=== PATIENT | male | born 1975 | race Caucasian/White ===

== ENCOUNTER → 2022-01-11 | Outpatient (CLI) | payer OTHER ==
--- NOTE | 2022-01-11 15:57 | KCIC ---
EXAM: MRI LEFT ANKLE/HINDFOOT DATE: 01/11/2022 3:00 PM CLINICAL INDICATION: Reason: LEFT ACHILLES INJURY/PAIN / Spl. Instructions: / History: Step wrong in jurying left achilles 6 days ago. COMPARISON: None. TECHNIQUE: Multiplanar, multisequence MR imaging of the left ankle was performed without IV contrast. FINDINGS: No ankle or subtalar joint effusion. Tendons: Posterior tibialis, flexor digitorum longus and flexor hallucis longus tendons are intact. Mild increased signal and thickening of the peroneus longus and brevis tendon posterior to the latera l malleolus, tendinosis. The peroneal tendons are anatomically positioned behind the lateral malleolu s. Anterior tibialis, extensor digitorum longus and extensor hallucis longus tendons are intact. There is a full-thickness tear of the Achilles tendon approximately 5 cm from the calcaneal attachmen t. In the principal components of the Achilles tendon measures 3 cm with associated fluid cleft and f at herniating between the segments of the Achilles tendon. Plantar fascia intact without marginal osteitis or soft tissue swelling. Physiologic fluid at the ret rocalcaneal bursa. Ligaments: Medial deltoid stabilizers are intact. Lateral collateral stabilizing ligaments including the anterior talofibular ligament are intact. Anterior and posterior tibiofibular ligaments are intact. Ligaments of the Sinus Tarsi are intact. Spaces/Places: Sinus Tarsi within normal limits, without mass lesion or edema pattern. Tarsal tunnel within normal limits, without mass lesion. Articular Cartilage/joint line: Articular cartilage at the tibiotalar joint preserved. Negative osteochondral lesion of the talar dom e. Posterior and middle subtalar joint spaces are preserved. Marginal joint spaces appear preserved including calcaneocuboid joint. Bone/Bone Marrow: No acute fracture or osteonecrosis. Soft tissue edema overlying the medial malleolus and dorsal aspect of the midfoot and hindfoot. IMPRESSION: 1. Full-thickness tear of the Achilles tendon approximately 5 cm the calcaneal attachment with 3 cm gap. Associated fluid cleft and Kagers fat is seen. 2. Mild peroneus longus and brevis tendinosis. Electronically signed by: Michele Juan MD (01/11/2022 3:54 PM) [id number]
== END ==
LOC: KCIC MRI 14:27
PROVIDERS: ATTEND Physician Assistant
DX: S86.012A Strain of left Achilles tendon, initial encounter (principal); X58.XXXA Exposure to other specified factors, initial encounter; Y93.89 Activity, other specified; Y92.89 Other specified places as the place of occurrence of the external cause; Y99.8 Other external cause status
CPT/HCPCS: 73721

== ENCOUNTER 2022-01-20 09:05 | Day surgery (SDC) | payer OTHER ==
[~2022-01-20] VITALS: Ht 182.9 cm; Wt 95.0 kg
[~2022-01-20 09:05] MED LIST: BUPIVACAINE MPF 0.25% 30 ML VIAL. ONE; BUPR100T16 PO; CELE200C PO; HYDROmorphone 2 MG/ML INJ. IVP PRN; IV RINGERS,LACTATED 1000ML 1,000 ML IV SCH; MORPHINE SULFATE 2 MG/ML INJ. IVP PRN; PROCHLORPERAZINE 10 MG/2 ML VIAL. IVP PRN; SERT100T PO; TRAZ-123 PO; fentaNYL PF VIAL 100 MCG/2 ML VIAL IVP PRN
[2022-01-20] MEDS ORDERED: LIDOCAINE 1% PF 2 ML VIAL. ONE (09:10)
[2022-01-20] MEDS ORDERED: ROPIVacaine 0.5% PF 20 ML VIAL. ONE (09:10)
[2022-01-20] MEDS ORDERED: MIDAZOLAM HCL/PF 2 MG/2 ML VIAL. ONE (09:10)
[2022-01-20] MEDS ORDERED: DEXAMETHASONE SOD PHOS 4 MG/ML VIAL ONE ×2 (09:10→09:47)
[2022-01-20 09:34] VITALS: BP 141/88
[2022-01-20] MEDS ORDERED: ONDANSETRON PF 4 MG/2 ML VIAL. ONE (09:47)
[2022-01-20] MEDS ORDERED: SUCCINYLCHOLINE 200 MG/10 ML VIAL. ONE (09:47)
[2022-01-20] MEDS ORDERED: LIDOCAINE 2% PF 5 ML VIAL. ONE (09:47)
[2022-01-20] MEDS ORDERED: PROPOFOL 10 MG/ML (20ML) VIAL. IV ONE (09:47)
[2022-01-20] MEDS ORDERED: ROCURONIUM 50 MG/5 ML VIAL. ONE ×2 (09:47→11:12)
[2022-01-20] MEDS ORDERED: NEOSTIGMINE METHYLSULFATE 5 MG/5 ML SYRINGE. ONE (09:47)
[2022-01-20] MEDS ORDERED: fentaNYL PF VIAL 100 MCG/2 ML VIAL ONE ×2 (09:48→12:32)
[2022-01-20] MEDS ORDERED: GLYCOPYRROLATE 1 MG/5 ML VIAL. ONE (09:48)
--- NOTE | 2022-01-20 10:03 | PDOC1 ---
History and Physical Date of Admission Date of Admission DATE: 01/20/22 TIME: 10:03 Identification/Chief Complaint Chief Complaint Left ankle pain, achilles rupture Source Source: Chart review, Patient History of Present Illness History of Present Illness Mr Garvin is a 46 yo male [employer] with PMHx PTSD seen in the preoperative care for assessment prior to left Achilles repair. On 01/05/2022 injured his left ankle and foot after stepping off a curb and into a pothole. He was initially seen in the ED and was noted with Achilles complete tear on MRI 01/11/2022 and was placed to the E boot. He has had tenderness of weight bearing. Is able to flex and dorsiflex foot. Distal neurovascular and capillary refill is equal to right foot. No recent travel. No specific ill contacts. No prior problems with anesthesia or blood clots. He has been compliant with his immobilizer boot and has been using a knee scooter to ambulate. 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 He is a 27-year retired of the [employer]. Past Medical History Psych: Other (PTSD) Past Surgical History Past Surgical History: Appendectomy, Other (Left femur fracture at age 8. Left shoulder labrum and biceps tear repair) Family History Family History Reviewed Family History: No Significant Social History Smoke: Quit (Smokeless tobacco chews.) ALCOHOL: rare (1-2 drinks per month) Drugs: None Current Medications Current Medications Current Medications Cefazolin Sodium/ Dextrose 50 ml @ 100 mls/hr 1X PREOP PRN IV PRIOR TO PROCEDURE; Start 01/20/22 at 06:00; Stop 01/20/22 at 18:00 Fentanyl Citrate (Fentanyl 2ml Vial) 25 mcg PRN Q5MIN PRN IVP MILD PAIN 1-3; Start 01/20/22 at 06:00; Stop 01/21/22 at 05:59 Fentanyl Citrate (Fentanyl 2ml Vial) 50 mcg PRN Q5MIN PRN IVP MODERATE PAIN 4- 6; Start 01/20/22 at 06:00; Stop 01/21/22 at 05:59 Morphine Sulfate (Morphine Sulfate) 1 mg PRN Q10MIN PRN IVP SEVERE PAIN 7-10; Start 01/20/22 at 06:00; Stop 01/21/22 at 05:59 Ringer's Solution 1,000 ml @ 30 mls/hr Q24H IV Last administered on 01/20/22at 09:43; Start 01/20/22 at 06:00; Stop 01/20/22 at 17:59 Hydromorphone HCl (Dilaudid) 0.5 mg PRN Q10MIN PRN IVP SEVERE PAIN 7-10, 2nd CHOICE; Start 01/20/22 at 06:00; Stop 01/21/22 at 05:59 Prochlorperazine Edisylate (Compazine) 5 mg PACU PRN PRN IVP NAUSEA, MRX1; Start 01/20/22 at 06:00; Stop 01/21/22 at 05:59 Bupivacaine HCl (Sensorcaine Mpf 0.25%) 30 ml STK-MED ONCE .ROUTE ; Start 01/20/22 at 08:58; Stop 01/20/22 at 08:58; Status DC Midazolam HCl (Versed) 2 mg STK-MED ONCE .ROUTE ; Start 01/20/22 at 09:10; Stop 01/20/22 at 09:10; Status DC Dexamethasone Sodium Phosphate (Decadron) 4 mg STK-MED ONCE .ROUTE ; Start 01/20/22 at 09:10; Stop 01/20/22 at 09:10; Status DC Lidocaine HCl (Xylocaine-Mpf 1% 2ml Vial) 2 ml STK-MED ONCE .ROUTE ; Start 01/20/22 at 09:10; Stop 01/20/22 at 09:10; Status DC Ropivacaine (Naropin 0.5%) 20 ml STK-MED ONCE .ROUTE ; Start 01/20/22 at 09:10; Stop 01/20/22 at 09:10; Status DC Lidocaine HCl (Lidocaine Pf 2% Vial) 5 ml STK-MED ONCE .ROUTE ; Start 01/20/22 at 09:47; Stop 01/20/22 at 09:47; Status DC Propofol (Diprivan) 200 mg STK-MED ONCE IV ; Start 01/20/22 at 09:47; Stop 01/20/22 at 09:47; Status DC Ondansetron HCl (Zofran) 4 mg STK-MED ONCE .ROUTE ; Start 01/20/22 at 09:47; Stop 01/20/22 at 09:47; Status DC Dexamethasone Sodium Phosphate (Decadron) 4 mg STK-MED ONCE .ROUTE ; Start 01/20/22 at 09:47; Stop 01/20/22 at 09:47; Status DC Succinylcholine Chloride (Anectine) 200 mg STK-MED ONCE .ROUTE ; Start 01/20/22 at 09:47; Stop 01/20/22 at 09:47; Status DC Neostigmine [place] (Neostigmine Methylsulfate) 5 mg STK-MED ONCE .ROUTE ; Start 01/20/22 at 09:47; Stop 01/20/22 at 09:47; Status DC Rocuronium [place] (Zemuron) 50 mg STK-MED ONCE .ROUTE ; Start 01/20/22 at 09:47; Stop 01/20/22 at 09:47; Status DC Fentanyl Citrate (Fentanyl 2ml Vial) 100 mcg STK-MED ONCE .ROUTE ; Start 01/20/22 at 09:48; Stop 01/20/22 at 09:48; Status DC Glycopyrrolate (Robinul) 1 mg STK-MED ONCE .ROUTE ; Start 01/20/22 at 09:48; Stop 01/20/22 at 09:48; Status DC Active Scripts Active Reported Zoloft (Sertraline Hcl) 100 Mg Tablet 200 Mg PO DAILY Bupropion Hcl Sr (Bupropion Hcl) 100 Mg Tablet.er 100 Mg PO DAILY Celebrex (Celecoxib) 200 Mg Capsule 200 Mg PO DAILY 30 Days Trazodone Hcl 100 Mg Tablet 100 Mg PO HS Allergies Allergies: Coded Allergies: No Known Drug Allergies (Unverified , 01/19/22) ROS General: No: Chills, Night Sweats, Fatigue, Malaise, Appetite, Other PSYCHOLOGICAL ROS: No: Anxiety, Behavioral Disorder, Concentration difficultie, Decreased libido, Depression, Disorientation, Hallucinations, Hostility, Irritablity, Memory difficulties, Mood Swings, Obsessive thoughts, Physical abuse, Sexual abuse, Sleep disturbances, Suicidal ideation, Other Eyes: No Blurry vision, No Decreased vision, No Double vision, No Dry eyes, No Excessive tearing, No Eye Pain, No Itchy Eyes, No Loss of vision, No Photophobia, No Scotomata, No Uses contacts, No Uses glasses, No Other HEENT: No: Heacaches, Visual Changes, Hearing change, Nasal congestion, Nasal discharge, Oral lesions, Sinus pain, Sore Throat, Epistaxis, Sneezing, Snoring, Tinnitus, Vertigo, Vocal changes, Other ALLERGY AND IMMUNOLOGY: No: Hives, Insect Bite Sensitivity, Itchy/Watery Eyes, Nasal Congestion, Post Nasal Drip, Seasonal Allergies, Other Hematological and Lymphatic: No: Bleeding Problems, Blood Clots, Blood Transfusions, Brusing, Night Sweats, Pallor, Swollen Lymph Nodes, Other ENDOCRINE: No: Breast Changes, Galactorrhea, Hair Pattern Changes, Hot Flashes, Malaise/lethargy, Mood Swings, Palpitations, Polydipsia/polyuria, Skin Changes, Temperature Intolerance, Unexpected Weight Changes, Other Breast: No New/Changing Breast Lumps, No Nipple changes, No Nipple discharge, No Other Respiratory: No: Cough, Hemoptysis, Orthopnea, Pleuritic Pain, Shortness of breath, SOB with excertion, Sputum Changes, Stridor, Tachypnea, Wheezing, Other Cardiovascular: No Chest Pain, No Palpitations, No Orthopnea, No Paroxysmal Noc. Dyspnea, No Edema, No Lt Headedness, No Other Gastrointestinal: No Nausea, No Vomiting, No Abdominal Pain, No Diarrhea, No Constipation, No Melena, No Hematochezia, No Other Genitourinary: No Dysuria, No Frequency, No Incontinence, No Hematuria, No Retention, No Discharge, No Urgency, No Pain, No Flank Pain, No Other, No , No , No , No , No , No , No Musculoskeletal: Yes Gait Disturbance, Yes Muscular Weakness; No Joint Pain, No Joint Stiffness, No Joint Swelling, No Muscle Pain, No Pain In:, No Swelling In:, No Other Neurological: Yes Gait Disturbance; No Behavorial Changes, No Bowel/Bladder ControlChng, No Confusion, No Dizziness, No Headaches, No Impaired Coord/balance, No Memory Loss, No Numbness/Tingling, No Seizures, No Speech Problems, No Tremors, No Visual Changes, No Weakness, No Other Skin: No Dry Skin, No Eczema, No Hair Changes, No Lumps, No Mole Changes, No Mottling, No Nail Changes, No Pruritus, No Rash, No Skin Lesion Changes, No Other, No Acne Physical Exam General: Alert, Oriented X3, Cooperative, No acute distress HEENT: Atraumatic, PERRLA, EOMI, Mucous membr. moist/pink Lungs: Clear to auscultation, Normal air movement Heart: S1S2, RRR, no thrills, no rubs, no gallops, no murmurs Abdomen: Normal bowel sounds, Soft, No tenderness, No hepatosplenomegaly, No masses Extremities: No clubbing, No cyanosis, No edema, Normal pulses, Other (Left hand: Immobilizer boot not able to examine skin sensation in distal toes able to wiggle) Skin: No rashes, No breakdown, No significant lesion Neuro: Normal speech, Strength at 5/5 X4 ext, Normal tone, Sensation intact, Cranial nerves 3-12 NL, Reflexes 2+ Psych/Mental Status: Mental status NL, Mood NL Vitals Vitals Vital Signs Date Time Temp Pulse Resp B/P (MAP) Pulse Ox O2 Delivery O2 Flow Rate FiO2 01/20/22 09:42 98.8 67 14 141/88 96 Room Air 98.8 Images Images Exam: Left ankle 3 views INDICATION: Stepped off curb TECHNIQUE: Frontal, lateral oblique views of the left ankle Comparisons: None FINDINGS: Bone mineralization is normal. No acute or healed fractures. Soft tissues are unremarkable. Joint spaces are well-maintained. IMPRESSION: No acute osseous abnormality Electronically signed by: Kassi Luis MD (01/05/2022 8:00 PM) [facility] MRI left ankle: No ankle or subtalar joint effusion. Tendons: Posterior tibialis, flexor digitorum longus and flexor hallucis longus tendons are intact. Mild increased signal and thickening of the peroneus longus and brevis tendon posterior to the lateral malleolus, tendinosis. The peroneal tendons are anatomically positioned behind the lateral malleolus. Anterior tibialis, extensor digitorum longus and extensor hallucis longus tendons are intact. There is a full-thickness tear of the Achilles tendon approximately 5 cm from the calcaneal attachment. In the principal components of the Achilles tendon measures 3 cm with associated fluid cleft and fat herniating between the segments of the Achilles tendon. Plantar fascia intact without marginal osteitis or soft tissue swelling. Physiologic fluid at the retrocalcaneal bursa. Ligaments: Medial deltoid stabilizers are intact. Lateral collateral stabilizing ligaments including the anterior talofibular ligament are intact. Anterior and posterior tibiofibular ligaments are intact. Ligaments of the Sinus Tarsi are intact. Spaces/Places: Sinus Tarsi within normal limits, without mass lesion or edema pattern. Tarsal tunnel within normal limits, without mass lesion. Articular Cartilage/joint line: Articular cartilage at the tibiotalar joint preserved. Negative osteochondral lesion of the talar dome. Posterior and middle subtalar joint spaces are preserved. Marginal joint spaces appear preserved including calcaneocuboid joint. Bone/Bone Marrow: No acute fracture or osteonecrosis. Soft tissue edema overlying the medial malleolus and dorsal aspect of the midfoot and hindfoot. IMPRESSION: 1. Full-thickness tear of the Achilles tendon approximately 5 cm the calcaneal attachment with 3 cm gap. Associated fluid cleft and Kagers fat is seen. 2. Mild peroneus longus and brevis tendinosis. VTE Prophylaxis Ordered VTE Prophylaxis Devices: Yes VTE Pharmacological Prophylaxi: No Assessment/Plan Assessment/Plan Full Achilles tear on left -no further testing prior to planned Achilles tendon repair Left ankle tendon strain - peroneus brevis and longus tendinosis. No ligamental tears noted PTSD -continue on home meds FEN - NPO PPX - SCDs FULL CODE Dispo - outpatient surgery. Can call [phone] if patient requires inpatient admission Justifications for Admission Other Justification WANDER MARCUM MD Jan 20, 2022 10:03
[2022-01-20] MEDS ORDERED: KETOROLAC 30 MG/ML VIAL. ONE (12:02)
--- NOTE | 2022-01-20 12:22 | PDOC4 ---
OPERATIVE NOTE Date: Date: Jan 20, 2022 Pre-Op Diagnosis: Left Achilles rupture, complete Post-Op Diagnosis: Same as above Procedure Performed: Left Achilles tendon repair with amnio graft Surgeon: Viktoria Arvizu DPM Anesthesia Type: General, preoperative popliteal saphenous block on the left lower extremity Blood Loss: 5cc Specimans Obtained: None Findings: Complete rupture of the left Achilles tendon without significant hematoma or soft tissue envelope compromise. The gap measured approximately 3 cm, originating from 6 cm proximal from the Achilles insertion site. Complications: None Operative Note: Under mild sedation, patient was brought into the operating room and placed on supine position on the gurney. A standard timeout was performed to confirm patient's identity, procedure and procedure site. Following IV antibiotics and general anesthesia, preoperative popliteal and saphenous block, a well-padded left thigh tourniquet was applied. Then patient was transferred to the o perating table in a prone position with all the bony anatomies well-padded and protected. The left lower extremity was then scrubbed, prepped and draped using aseptic techniques. Using intraoperative x-ray, the ankle joint, posterior calcaneal tuber were marked. The rupture site was measured and marked based on the preoperative MRI and intraoperative x-ray. Then the left lower extremity was exsanguinated and pressure was set at 250 millimercury. The attention was directed to the posterior Achilles tendon near the rupture site through palpation and measurement preoperatively. A straight linear incision was made just slightly medial from the midline over the rupture site. The incision was carried deep to subcutaneous layer with care to protect and retract all the neurovascular bundles. At this time, we noted a complete rupture at the Achilles tendon sitewith minimal hematoma proximally. The gap was measured approximately 3 cm. Using an Allis clamp, the proximal Achilles stump was pulled into the incision site distally. Blunt dissection was carried out along the proximal and distal stumps to allow adequate tendon gliding and e nd-to end reapproximation with minimal tension. The surgical site was irrigated with copious saline solution. #2 FiberWire suture were applied in a [place] fashion to the distal and proximal Achilles tendon stumps. Distal traction of the proximal stump remarked adequate reapproximation with the distal stump with the ankle plantarflexed at 15 to 20 degrees.. Two full-thickness linear skin incisions, proximally 1 cm, were placed immediately medial and lateral at the Achilles insertion site. The incision was carried deep to the layer of periosteum layer with blunt dissection and care to retract and protect all the neurovascular bundles. Within these stab incisions, a 3.5 mm drill was advanced into the calcaneal tuber with care to not to violate or penetrate subtalar joint or plantar calcaneal cortex. The drill holes were tapped with 4.75 mm tap to prepare for swivel lock anchors. Using a banana suture lasso, the proximal pars sutures were passed through the distal Achilles stump out of the distal stab incisions. two 4.75 mm swivel lock anchors were used to tension and secure the proximal #2 FiberWires with ankle held near 15-20 degrees plantarly where the two Achilles stumps were able to opposed well. The distal stump of the Achilles tendon was secured proximally in a giftbox fashion with suture knots proximally away from the rupture site. At this time, Soliman test was noted and negative. Then the surgical site was irrigated with copious saline solution. The mopped ends at the rupture site were remodeled. To prevent scar adhesion and promote fibroblast proliferation, an 8 x 3 cm amnio graft was applied to the posterior aspect of the Achilles tendon and secured with 3-0 Vicryl. The skin was closed in layers with 4-0 Monocryl and 4-0 nylon under minimal to no tension. The procedure site was dressed with jumpstart, 4 x 4, ABD and immobilized in a well-padded Salas compression splint with a sugar tong while the ankle was held at gravity equinus. The tourniquet was released and adequate digital perfusion was noted. Patient tolerated the procedure and anesthesia well with neurovascular status intact and was transferred to PACU for continued recovery. Pending 3 view left ankle x-ray. VIKTORIA ARVIZU DPM Jan 20, 2022 12:22
[2022-01-20] MEDS ORDERED: ACETAMINOPHEN 325 MG TABLET. PO ONE (12:30)
[2022-01-20] MEDS ORDERED: oxyCODONE/APAP 5/325 1 TAB TABLET PO ONE (12:30)
[2022-01-20] MEDS ORDERED: DEXTROSE 50% 25 GM / 50ML DISP.SYRIN. IV PRN (12:30)
[2022-01-20] MEDS ORDERED: HYDR-2759 PO (13:20)
[2022-01-20 13:24] VITALS: BP 140/78
[2022-01-20] MEDS ORDERED: GABAPENTIN 300 MG CAPSULE. PO ONE (13:30)
--- NOTE | 2022-01-20 16:47 | RAD ---
EXAM: LEFT ANKLE 3 VIEWS. HISTORY: Postoperative, Achilles tendon repair COMPARISON: None. FINDINGS: The patient is in splint, limiting fine detail. A density projecting over the inferior aspe ct of the calcaneal tuberosity is likely related to splint material. A suture anchor tract is suspect ed within the calcaneal tuberosity. No fractures are identified. Alignment is maintained.. IMPRESSION: 1. Status post Achilles tendon repair. Electronically signed by: Briseida Wilson MD (01/20/2022 4:45 PM) [id number]
== END 2022-01-20 14:17 | disposition home or self-care (01) ==
LOC: SURG 09:05
PROVIDERS: ATTEND Podiatrist
DX: S86.012A Strain of left Achilles tendon, initial encounter (principal); M19.90 Unspecified osteoarthritis, unspecified site; G47.30 Sleep apnea, unspecified; F41.9 Anxiety disorder, unspecified; Z98.890 Other specified postprocedural states; X58.XXXA Exposure to other specified factors, initial encounter; Y93.89 Activity, other specified; Y92.89 Other specified places as the place of occurrence of the external cause; Y99.8 Other external cause status
CPT/HCPCS: 73610; 76000; A4930; A6253; A6449; A6450; J0330; J0690; J1100; J1885; J2250; J2405; J2704; J2710; J2795; J3010; J3490; V2790